=== PATIENT | female | born 1990 | race Caucasian/White ===

== ENCOUNTER 2020-10-10 16:18 | Emergency (ER) | payer OTHER ==
[~2020-10-10] VITALS: Ht 162.6 cm; Wt 59.0 kg
--- NOTE | 2020-10-10 16:35 | NUR ---
The patient bibs for c/o abdominal pain 07/13. Abdomen soft and non-distended. In room air and denies SOB. Respiration regular and unlabored. Will continue to monitor the patient.
[2020-10-10] MEDS ORDERED: LIDOCAINE VISCOUS 2% UD 15 ML UDC ONE (16:49)
[2020-10-10] MEDS ORDERED: MAG HYDROX/AL HYDROX/SIMETH 30 ML UDC ONE (16:49)
[2020-10-10] MEDS ORDERED: MAG HYDROX/AL HYDROX/SIMETH 30 ML UDC PO ONE (17:00)
[2020-10-10] MEDS ORDERED: IV NS 0.9% 1,000 ML BAG IV ONE (17:00)
[2020-10-10] MEDS ORDERED: ONDANSETRON HCL/PF 4 MG/2 ML VIAL IVP ONE (17:00)
[2020-10-10] MEDS ORDERED: LIDOCAINE VISCOUS 2% UD 15 ML UDC MM ONE (17:00)
[2020-10-10] MEDS ORDERED: ONDANSETRON HCL/PF 4 MG/2 ML VIAL ONE (17:00)
--- NOTE | 2020-10-10 17:04 | NUR ---
urine collected and sent to the lab
--- NOTE | 2020-10-10 17:08 | NUR ---
US TECH AT BEDSIDE
[2020-10-10 17:16] LABS: BASOPHILS % (AUTO) 0.3 % (0.0-2.0); EOSINOPHILS % (AUTO) 1.1 % (0.0-6.0); HEMATOCRIT 41 % (33-45); HEMOGLOBIN 13.6 g/dL (11.5-14.8); LYMPHOCYTES # (AUTO) 1.7 /CMM (0.8-4.8); LYMPHOCYTES % (AUTO) 15.4 % (20.0-44.0); MEAN CORPUSCULAR HGB CONC 33 g/dl (31.0-36.0); MEAN CORPUSCULAR VOLUME 87 fL (82-100); MONOCYTES # (AUTO) 0.5 /CMM (0.1-1.30); MONOCYTES % (AUTO) 4.3 % (2.0-12.0); NEUTROPHILS # (AUTO) 8.8 /CMM (1.8-8.9); NEUTROPHILS % (AUTO) 78.9 % (43.0-81.0); PLATELET COUNT (AUTO) 314 /CMM (150-450); WHITE BLOOD COUNT (AUTO) 11.2 K/uL (4.3-11.0)
[2020-10-10 17:18] LABS: BILIRUBIN,URINE NEGATIVE (NEGATIVE); COLOR,URINE YELLOW (YELLOW); LEUKOCYTE ESTERASE ,URINE NEGATIVE (NEGATIVE); NITRITE, URINE NEGATIVE (NEGATIVE); PROTEIN,URINE NEGATIVE (NEGATIVE); UGLUCOSE NEGATIVE (NEGATIVE); UROBILINOGEN,URINE 0.2 EU/dL (0.2)
[2020-10-10 17:23] LABS: BACTERIA,URINE None seen /HPF (None Seen); SQUAMOUS EPITHELIAL CELL,UR 0-2 /HPF (None Seen); WBC,URINE 0-2 /HPF (0-3)
[2020-10-10 17:38] LABS: ALBUMIN 3.5 g/dL (3.4-5.0); BILIRUBIN,DIRECT 0.1 mg/dL (0.0-0.2); BILIRUBIN,TOTAL 0.5 mg/dL (0.2-1.0); CALCIUM, SERUM 9.1 mg/dL (8.5-10.1); CREATININE 0.7 mg/dL (0.6-1.3); POTASSIUM 3.4 mmol/L (3.5-5.1); TOTAL PROTEIN, SERUM 8.2 g/dL (6.4-8.2)
[2020-10-10] MEDS ORDERED: POTASSIUM CHLORIDE 20 MEQ TAB.PRT.SR PO ONE ×2 (18:30→18:36)
[2020-10-10] MEDS ORDERED: HYDR-4303 PO (18:50)
[2020-10-10] MEDS ORDERED: ONDA4TAB5 PO (18:50)
--- NOTE | 2020-10-10 19:10 | NUR ---
Patient a/ox4, breathing even and unlabored, no sob noted. Needs attended. Kept comfortable. IV removed. Catheter intact and site benign. Pressure and 4x4 applied to site. No bleeding noted.Patient discharged to home in stable condition. Written and verbal after care instructions given. Patient verbalizes understanding of instruction.
[2020-10-10 19:11] VITALS: BP 116/68
== END 2020-10-10 19:11 | disposition home or self-care (01) ==
LOC: ER 16:25
DX: K80.50 Calculus of bile duct without cholangitis or cholecystitis without obstruction (principal); E87.6 Hypokalemia; R31.9 Hematuria, unspecified; R11.0 Nausea; R10.13 Epigastric pain
CPT/HCPCS: 36415; 71045; 76705; 80048; 80076; 81001; 83690; 84703; 85025; 93005; 96361; 96374; 99285; J2405; J7030

== ENCOUNTER 2020-11-25 15:28 | Emergency (ER) | payer OTHER ==
[~2020-11-25] VITALS: Ht 157.5 cm; Wt 56.7 kg
[~2020-11-25 15:28] MED LIST: HYDR-4303 PO; ONDA4TAB5 PO
--- NOTE | 2020-11-25 15:40 | NUR ---
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 on room air, breathing evenly and unlabored. Connected to the monitor and pulse ox. kept comfortable, will continue to monitor accordingly.
[2020-11-25 16:29] LABS: BILIRUBIN,URINE Negative (NEGATIVE); COLOR,URINE YELLOW (YELLOW); LEUKOCYTE ESTERASE ,URINE Negative (NEGATIVE); NITRITE, URINE Negative (NEGATIVE); PH,URINE 7.5 (5.0-8.0); PROTEIN,URINE Negative (NEGATIVE); UGLUCOSE Negative (NEGATIVE); UROBILINOGEN,URINE 0.2 EU/dL (0.2)
[2020-11-25 16:35] LABS: BACTERIA,URINE Few /HPF (None Seen); SQUAMOUS EPITHELIAL CELL,UR 0-2 /HPF (None Seen); WBC,URINE 0-2 /HPF (0-3)
[2020-11-25 16:36] LABS: URINE AMORPHOUS PHOSPHATES Moderate /HPF (None Seen)
[2020-11-25 16:37] LABS: BASOPHILS # (AUTO) 0.1 K/uL (0.0-0.2); BASOPHILS % (AUTO) 0.5 % (0.0-2.0); EOSINOPHILS % (AUTO) 0.8 % (0.0-6.0); HEMATOCRIT 39 % (33-45); HEMOGLOBIN 12.6 g/dL (11.5-14.8); LYMPHOCYTES # (AUTO) 1.9 K/uL (0.8-4.8); LYMPHOCYTES % (AUTO) 14.6 % (20.0-44.0); MEAN CORPUSCULAR HGB CONC 32 g/dl (31.0-36.0); MEAN CORPUSCULAR VOLUME 86 fL (82-100); MONOCYTES # (AUTO) 0.4 K/uL (0.1-1.30); MONOCYTES % (AUTO) 3.1 % (2.0-12.0); NEUTROPHILS # (AUTO) 10.4 K/uL (1.8-8.9); PLATELET COUNT (AUTO) 307 K/uL (150-450); RED BLOOD CELL COUNT(AUTO) 4.52 MIL/uL (4.0-5.2); WHITE BLOOD COUNT (AUTO) 12.8 K/uL (4.3-11.0)
[2020-11-25 16:45] LABS: CALCIUM, SERUM 8.9 mg/dL (8.5-10.1); CREATININE 0.8 mg/dL (0.6-1.3); POTASSIUM 3.8 mmol/L (3.5-5.1)
[2020-11-25 16:50] LABS: ALBUMIN 3.3 g/dL (3.4-5.0); BILIRUBIN,DIRECT 0.1 mg/dL (0.0-0.2); BILIRUBIN,TOTAL 0.3 mg/dL (0.2-1.0); TOTAL PROTEIN, SERUM 7.9 g/dL (6.4-8.2)
[2020-11-25] MEDS ORDERED: BISM-146 PO (17:08)
[2020-11-25] MEDS ORDERED: OMEP40CA21 PO (17:08)
[2020-11-25] MEDS ORDERED: TETR-66 PO (17:08)
[2020-11-25] MEDS ORDERED: METR-147 PO (17:08)
--- NOTE | 2020-11-25 17:15 | NUR ---
Patient discharged to home in stable condition. Written and verbal after care instructions given. Patient verbalizes understanding of instruction.
[2020-11-25 17:17] VITALS: BP 100/61
== END 2020-11-25 17:17 | disposition home or self-care (01) ==
LOC: ER 15:50
DX: K29.70 Gastritis, unspecified, without bleeding (principal); Z79.899 Other long term (current) drug therapy
CPT/HCPCS: 36415; 80048-TC; 80076-TC; 81001; 83690-TC; 84703-TC; 85025-TC

== ENCOUNTER 2020-12-14 15:53 | Emergency (ER) | payer OTHER ==
[~2020-12-14] VITALS: Ht 160 cm; Wt 59.0 kg
[~2020-12-14 15:53] MED LIST changes: +BISM-146 PO; +METR-147 PO; +OMEP40CA21 PO; +TETR-66 PO
[2020-12-14] MEDS ORDERED: ACET-868 PO (17:01)
--- NOTE | 2020-12-14 17:02 | NUR ---
BIBS FOR C/O FEVER/COUGH AND LOSS OF TASTE X 7 DAYS. IN ROOM AIR AND DENIES SOB. RESPIRATION REGULAR AND UNLABORED. WILL CONTINUE TO MONITOR THE PATIENT.
[2020-12-14 17:32] VITALS: BP 112/63
--- NOTE | 2020-12-14 17:32 | NUR ---
COVID SWABS DONE AND SENT TO THE LAB
--- NOTE | 2020-12-14 17:32 | NUR ---
Patient discharged to home in stable condition. Written and verbal after care instructions given. Patient verbalizes understanding of instruction.
--- NOTE | 2020-12-14 19:33 | NUR ---
CALLED PT AND MADE HER AWARE OF THE + COVID RESULT
--- NOTE | 2020-12-19 08:11 | NUR ---
called patient informing of positive covid pcr test.
== END 2020-12-14 17:33 | disposition home or self-care (01) ==
LOC: ER 15:53
DX: U07.1 COVID-19 (principal); R43.9 Unspecified disturbances of smell and taste
CPT/HCPCS: 87426; 99283; C9803; U0003